=== PATIENT | male | born 1935 | race Caucasian/White ===

== ENCOUNTER 2023-09-30 19:38 | Emergency (ER) | payer MEDICARE ==
[2023-09-30] MEDS ORDERED: HYDROcodone/Acetaminophen 10/325 mg Tablet ONE (21:45)
== END 2023-09-30 22:34 | disposition home or self-care (01) ==
LOC: ERS 19:38
DX: S12.600A Unspecified displaced fracture of seventh cervical vertebra, initial encounter for closed fracture (principal); S12.400A Unspecified displaced fracture of fifth cervical vertebra, initial encounter for closed fracture; W07.XXXA Fall from chair, initial encounter
CPT/HCPCS: 99282